=== PATIENT | female | born 1985 | race Caucasian/White ===

== ENCOUNTER 2020-07-18 06:06 | Observation (INO) | payer OTHER, MEDICAID ==
[~2020-07-18] VITALS: Ht 157.5 cm; Wt 59.0 kg
--- NOTE | ~2020-07-18 | CON ---
[address] [address] CONSULTATION Name: GABRIEL VALLEJO Room: [address] Lacy#: [id number] Admission: 07/18/20 Attend Phys: Eagle Brooks MD Discharge: Date of : 87 Report #: [id number] THIS REPORT FOR: cc: FAM - No family physician/PCP FAM - No family physician/PCP ~ Shannan Monzon DO NEUROLOGY CONSULT HISTORY OF PRESENT ILLNESS: The patient is a 34-year-old female who presents with a 2-day history of pins and needles in the left upper extremity. She states that involves the entire arm up to the shoulder. She denies neck pain. She tells me that 5 years ago she was having intermittent tingling in the legs and was worked up by a physician for multiple sclerosis. She did not think this physician was a neurologist. She had an MRI of the head, but does not remember having any other diagnostic studies. She was told that she did not have MS. The patient states that she continues to have intermittent tingling in the legs and has sometimes fallen. She has no symptoms of the face such as double vision, blurry vision, difficulty speaking, or swallowing, vertigo or lightheadedness. PAST MEDICAL HISTORY: Negative. PAST SURGICAL HISTORY: Hysterectomy. MEDICATIONS: None. ALLERGIES: None. VITAL SIGNS: Temperature 36.3, pulse rate 90, respiratory rate 15, blood pressure on admission 155/80, bedside pulse oximetry 99% on room air. LABORATORY DATA: Hematology: White blood cell count 5.9, hemoglobin 12.6, hematocrit 37.2, MCV 86.1, platelet count 386,000. INR 1. Urinalysis, 1+ blood. Chemistry: Sodium 145, potassium 3.5, chloride 107, carbon dioxide 28, BUN 14, creatinine 0.6, GFR 115, glucose 94, calcium 8.2. Liver functions normal. COVID negative. IMAGING STUDIES: CT scan of the head normal. NEUROLOGIC EXAMINATION: Cranial nerves 2-12 are grossly intact. Motor exam demonstrates symmetrical strength in all 4 extremities with tone and bulk normal. Reflexes are symmetrical throughout. Plantar responses are flexor bilaterally. Coordination demonstrated intact [id number] [address] CONSULTATION Name: GABRIEL VALLEJO [address] [id number] Admission: 07/18/20 Attend Phys: Eagle Brooks MD Discharge: Date of : 87 Report #: [id number] IMPRESSION: The patient will be scheduled for an MRI of the head and cervical spine, both with and without contrast to evaluate for demyelinating disease. If nothing is found, perhaps consideration should be given to a lumbar puncture to look for oligoclonal bands and IgG synthesis rate. However, we may obtain enough information from the MRI that the lumbar puncture will not be necessary. I think occupational therapy and physical therapy will also be helpful. I am not going to give the patient any medication at this time. Dr. Loco will be following the patient as of Sunday. By: [id number] Monzon DO /nt
[2020-07-18 06:09] VITALS: BP 155/80
[2020-07-18 07:50] LABS: ABSOLUTE EOSINOPHILS 0.1 thou/uL (0.0-0.7); ABSOLUTE MONOCYTES 0.5 thou/uL (0.0-1.2); ABSOLUTE NEUTROPHILS 3.2 thou/uL (1.6-8.1); BASOPHILS 0.4 %; EOSINOPHILS 1.7 %; HEMATOCRIT 37.2 % (37.0-47.0); HEMOGLOBIN 12.6 gm/dL (12.0-15.0); MCH 29.1 pg (26.0-34.0); MCHC 33.8 g/dL (28.0-37.0); MCV 86.1 fL (80.0-100.0); MONOCYTES 9.1 %; NUCLEATED RBCS 0 /100WBC; PLATELET COUNT* 386 thou/uL (150-400); POLYS 54.8 %; RBC 4.32 mil/uL (4.20-5.00); RDW-CV 12.3 % (10.5-14.5); WBC 5.9 thou/uL (4.0-11.0)
[2020-07-18 07:51] LABS: CALCIUM 8.2 mg/dL (8.5-10.1); CREATININE 0.6 mg/dL (0.6-1.3); POTASSIUM 3.5 mmol/L (3.5-5.1)
[2020-07-18 07:54] LABS: PROTIME 10.9 Seconds (9.20-11.50)
[2020-07-18 07:55] LABS: ALBUMIN 3.8 g/dL (3.4-5.0); TOTAL BILIRUBIN 0.2 mg/dL (<0.1-1.0); TOTAL PROTEIN 7.1 g/dL (6.4-8.2)
[2020-07-18 10:53] LABS: URINE BILIRUBIN NEGATIVE (Negative); URINE BLOOD 1+ (Negative); URINE CLARITY CLEAR; URINE COLOR YELLOW; URINE GLUCOSE-RANDOM NEGATIVE (Negative); URINE KETONES NEGATIVE (Negative); URINE LEUKOCYTES NEGATIVE (Negative); URINE NITRITE NEGATIVE (Negative); URINE PROTEIN NEGATIVE (Negative); URINE UROBILINOGEN 0.2 E.U./dl (0.2-1.0)
[2020-07-18 10:58] VITALS: BP 97/67
[2020-07-18 11:04] LABS: MUCUS 4-6 Moderate strn/LPF (None Seen)
[2020-07-18 11:05] LABS: CASTS None Seen /LPF (None Seen); CRYSTALS None Seen /LPF (None Seen); SQUAMOUS >10 Many /LPF (0-3)
[2020-07-18 11:06] LABS: BACTERIA 1-9 Few /HPF (None Seen); URINE RBC 0-2 Rare /HPF (0-2); URINE WBC 0-5 Rare /HPF (0-5)
[2020-07-18 11:30] VITALS: BP 124/62
--- NOTE | 2020-07-18 12:00 | EKG ---
[place] [address] ELECTROCARDIOGRAM REPORT Name: RACHEL VALLEJOY SYED Room: [address]#: [id number] Admission: 07/18/20 Attend Phys: Eagle Brooks, Discharge: Date of : 87 Date of Service: 07/18/20613 Report #: [id number] THIS REPORT FOR: //name// [facility] ED Test Date: 2020-07-18 Test Time: 06:14:04 Pat Name: GABRIEL VALLEJO Department: Room: [facility] Gender: F Dining Room Server: [place] : 1985 Requested By: Marcel Leon Order Number: [id number] MD: Lito Dumont Measurements Intervals [place] Rate: 87 P: 7 VA: 143 QRS: 11 QRSD: 81 T: 31 QT: 367 QTc: 439 Interpretive Statements Sinus rhythm No previous ECG available for comparison Electronically Signed On 07-18-2020 12:00:28 [employer] by Lito Dumont [email or web address] <ELECTRONICALLY SIGNED> By: Tory Dumont MD, [facility] 07/18/20 1200 3 3 Tory Dumont MD, [facility] /EPI
[2020-07-18 13:24] LABS: AMP/METHAMP Negative (Negative); BARBITURATES Negative (Negative); BENZODIAZEPINES Negative (Negative); COCAINE Negative (Negative); METHADONE Negative (Negative); OPIATES Negative (Negative); PCP Negative (Negative); THC Negative (Negative)
[2020-07-18 16:16] VITALS: BP 100/61
[2020-07-18 20:30] VITALS: BP 102/66
[2020-07-19 00:23] VITALS: BP 98/56
[2020-07-19 03:05] LABS: GLYCOHEMOGLOBIN (HGB A1C) 4.9 % (4.8-5.6)
[2020-07-19 04:16] VITALS: BP 98/56
[2020-07-19 04:19] LABS: ABSOLUTE EOSINOPHILS 0.2 thou/uL (0.0-0.7); ABSOLUTE LYMPHOCYTES 2.7 thou/uL (0.8-5.3); ABSOLUTE MONOCYTES 0.6 thou/uL (0.0-1.2); ABSOLUTE NEUTROPHILS 3.6 thou/uL (1.6-8.1); BASOPHILS 0.2 %; EOSINOPHILS 3.1 %; HEMATOCRIT 34.7 % (37.0-47.0); HEMOGLOBIN 11.7 gm/dL (12.0-15.0); LYMPHOCYTES 37.2 %; MCH 29.2 pg (26.0-34.0); MCHC 33.8 g/dL (28.0-37.0); MCV 86.6 fL (80.0-100.0); MONOCYTES 8.7 %; MPV 6.3 fl. (7.2-11.1); NUCLEATED RBCS 0 /100WBC; PLATELET COUNT* 339 thou/uL (150-400); POLYS 50.8 %; RDW-CV 12.1 % (10.5-14.5); WBC 7.1 thou/uL (4.0-11.0)
[2020-07-19 04:49] LABS: ALBUMIN 3.4 g/dL (3.4-5.0); CREATININE 0.8 mg/dL (0.6-1.3); POTASSIUM 3.6 mmol/L (3.5-5.1); TOTAL BILIRUBIN 0.5 mg/dL (<0.1-1.0); TOTAL PROTEIN 5.9 g/dL (6.4-8.2)
[2020-07-19 04:53] LABS: CHOLESTEROL 133 mg/dL (<200); HDL CHOLESTEROL 75 mg/dL (>40); LDL CHOLESTEROL 50 mg/dL (<100); TC:HDL 1.8 Ratio (Not establshd); TRIGLYCERIDE 43 mg/dL (<150); VLDL 9 mg/dL (<40)
[2020-07-19 04:59] LABS: SERUM ASSESSMENT CLEAR
[2020-07-19 08:00] VITALS: BP 110/56
[2020-07-19 11:51] VITALS: BP 110/56
[2020-07-19 13:40] VITALS: BP 104/67
[2020-07-19 15:11] VITALS: BP 110/56
== END 2020-07-19 15:56 | disposition home or self-care (01) ==
LOC: M.ERS 06:06 → M.2W 09:22 → M.TBA-ER 09:22 → M.2W 11:49
PROVIDERS: Emergency Medicine Emergency Medical Services; ADMIT Internal Medicine; ATTEND Internal Medicine
DX: R20.2 Paresthesia of skin (principal); R20.0 Anesthesia of skin; F41.9 Anxiety disorder, unspecified; G43.909 Migraine, unspecified, not intractable, without status migrainosus; Z79.82 Long term (current) use of aspirin; Z79.899 Other long term (current) drug therapy; Z20.822 Contact with and (suspected) exposure to COVID-19; Z23 Encounter for immunization